=== PATIENT | male | born 1995 | race Caucasian/White ===

== ENCOUNTER 2019-04-04 09:03 | Emergency (ER) | payer MEDICAID ==
[~2019-04-04] VITALS: Ht 182.9 cm; Wt 104.8 kg
[2019-04-04 09:15] VITALS: Ht 182.9 cm; Wt 104.8 kg
[2019-04-04 10:09] VITALS: BP 124/71
== END 2019-04-04 10:09 | disposition home or self-care (01) ==
LOC: ED 09:03
DX: H61.23 Impacted cerumen, bilateral (principal)